=== PATIENT | female | born 1985 | race Caucasian/White ===

== ENCOUNTER → 2017-10-02 | Outpatient (CLI) | payer OTHER | LOC: M RAD 12:26 | DX: H53.9 Unspecified visual disturbance (principal) | CPT/HCPCS: 93880 ==

== ENCOUNTER → 2018-12-15 | Outpatient (CLI) | payer OTHER ==
--- NOTE | 2018-12-18 20:06 | SLEEPHOME ---
DATE OF PROCEDURE: 12/15/2018 ORDERED BY: MACI Ruth [facility] home sleep testing was performed due to concern for the obstructive sleep apnea syndrome. For testing a nocturnal T3 respiratory monitoring device was used. Continuous record was made of pulse, oxygen saturation, airflow, chest, abdominal strain and body position. 10 hours and 59 minutes of data were reviewed. There were 8 hours and 4 minutes marked as time in bed. During the interval marked time in bed, there were 71 respiratory events identified of 10 seconds in duration or greater for a respiratory event index of 8.8. The events were primarily obstructive. Baseline pulse rate 72, pulse rate ranged 56-106. Baseline saturation 94%, saturations fell to 83%. Testing was performed in both the supine and nonsupine positions. IMPRESSION: Abnormal home sleep testing with repetitive respiratory events and oxygen desaturation to 83% with a respiratory event index of 8.8 is consistent with the obstructive sleep apnea syndrome. RECOMMENDATIONS: The patient should be encouraged undergo a formal sleep evaluation.
== END ==
LOC: M SLEEP HO 11:39
PROVIDERS: ATTEND Nurse Practitioner Family
DX: R06.83 Snoring (principal)

== ENCOUNTER → 2019-04-23 | Outpatient (CLI) | payer OTHER ==
--- NOTE | 2019-04-23 11:09 | REP ---
Four views right ankle: 04/23/2019. Indication: Right ankle pain. Comparison: None. Findings: There is no acute fracture, subluxation or dislocation. No lytic or blastic lesions are present. No significant joint effusion is noted. Anterior and posterior calcaneal spurs are noted. Impression: No acute right ankle osseous injury. Calcaneal spurring. Electronically Signed by Bunny Watt DO 04/23/2019 11:00 A
== END ==
LOC: M WUC 10:33
PROVIDERS: ATTEND Family Medicine
DX: M25.571 Pain in right ankle and joints of right foot (principal)